=== PATIENT | female | born 2000 | race Two or more races ===

== ENCOUNTER 2022-12-07 08:01 | Inpatient (IN) | payer OTHER ==
[~2022-12-07] VITALS: Ht 160 cm; Wt 62.6 kg
[2022-12-07] MEDS ORDERED: PRENATAL TABLE1 EAC1 PO (08:13)
== END 2022-12-09 12:20 | disposition home or self-care (01) | DRG 807 ==
LOC: LDR 08:01 → OB/GYN 08:01
PROVIDERS: ADMIT Obstetrics & Gynecology; ATTEND Obstetrics & Gynecology
PROC: 10E0XZZ Delivery of Products of Conception, External Approach (ICD-10-PCS; principal; 2022-12-07)
PROC: 0HQ9XZZ Repair Perineum Skin, External Approach (ICD-10-PCS; 2022-12-07)
PROC: 4A1HXCZ Monitoring of Products of Conception, Cardiac Rate, External Approach (ICD-10-PCS; 2022-12-07)
DX: O70.0 First degree perineal laceration during delivery (principal); Z37.0 Single live birth; O99.824 Streptococcus B carrier state complicating childbirth; Z3A.39 39 weeks gestation of pregnancy; Z20.822 Contact with and (suspected) exposure to COVID-19